=== PATIENT | male | born 1940 ===

== ENCOUNTER 2017-11-17 11:45 | Inpatient (IN) | payer MEDICARE, OTHER ==
[2017-10-22 11:09] VITALS: BMI 27.4
[2018-01-05] MEDS ORDERED: Bupivacaine Liposomal Inj 20 ml INFIL ONE (07:15)
--- NOTE | 2018-01-05 07:22 | CP.PCM.HP ---
History of Present Illness - History of Present Illness History of Present Illness: 77M complains of knee pain failed conservative mgmt and elected for right TKR. PMH includes CAD s/p PTCA, HTN, high cholesterol. Present on Admission - Present on Admission Any Indicators Present on Admission: No Review of Systems - Review of Systems All systems: reviewed and no additional remarkable complaints except - Musculoskeletal Musculoskeletal: As Per HPI Past Patient History - Past Medical History & Family History Past Medical History?: Yes Past Family History: Reviewed and not pertinent - Past Social History Smoking Status: Never Smoked - CARDIAC Hx Cardiac Disorders: Yes Hx Hypercholesterolemia: Yes Hx Hypertension: Yes - NEUROLOGICAL Hx Neurological Disorder: Yes Hx Dizziness: Yes (NO MEDICATIONS FOR DIZZINESS) Other/Comment: GENERALIZED TREMORS NO DX - HEENT Hx HEENT Problems: Yes (DECREASED IN HEARING-NO HEARING AIDS) Hx Cataracts: Yes (BILAT. NO SURGERY) - MUSCULOSKELETAL/RHEUMATOLOGICAL Hx Musculoskeletal Disorders: Yes Hx Arthritis: Yes (TAKE ADVIL PRN) - PSYCHIATRIC Hx Psychophysiologic Disorder: Yes Hx Anxiety: Yes - SURGICAL HISTORY Hx Surgeries: Yes Hx Angioplasty: Yes (X 8- 10 YEARS AGO) Hx Cardiac Catheterization: Yes Hx Orthopedic Surgery: Yes (right shoulder) - ANESTHESIA Hx Anesthesia: Yes Hx Anesthesia Reactions: No Hx Malignant Hyperthermia: No Has any member of the family had a problem w/ anesthesia?: No Meds Allergies/Adverse Reactions: Allergies Allergy/AdvReac Type Severity Reaction Status Date / Time No Known Allergies Allergy Verified 03/15/14 07:01 Physical Exam - Constitutional Appears: Well, No Acute Distress - Extremities Exam Additional comments: calves soft NT neg homans +DP/PT pulses sensation intact - Neurological Exam Neurological exam: Alert, Oriented x3 - Psychiatric Exam Psychiatric exam: Normal Affect, Normal Mood - Skin Skin Exam: Dry, Intact, Normal Color, Warm Results - Vital Signs Recent Vital Signs: Last Vital Signs Temp 97.6 F 01/05/18 06:37 Pulse 59 L 01/05/18 06:37 Resp 20 01/05/18 06:37 BP 139/76 01/05/18 06:37 Pulse Ox 97 01/05/18 06:37 Assessment & Plan (1) Primary osteoarthritis of right knee Assessment and Plan: for TKR Status: Acute (2) HTN (hypertension) Assessment and Plan: cont home meds Status: Chronic
[2018-01-05] MEDS ORDERED: Lactated Ringer's 1,000 ML IV ONE (07:50)
[2018-01-05] MEDS ORDERED: ceFAZolin 1 gm in NS 2 GM/200 ML BAG IVPB ONE (07:52)
[2018-01-05] MEDS ORDERED: Propofol 10 mg/ml Inj (20 ML) ONE (07:54)
[2018-01-05] MEDS ORDERED: Sodium Chloride 0.9% 60 ML IV ONE (08:03)
[2018-01-05] MEDS: Bacitracin 150,000 UNIT in Sodium Chloride 0.9% Irrig 3,000 ML IR SCH ×2 (08:38→09:07)
[2018-01-05] MEDS ORDERED: Rocuronium 10 mg/ml (5 ml) ONE (09:13)
[2018-01-05] MEDS ORDERED: Bupivacaine HCl 0.5% PF (30 ml) Inj ONE (09:35)
[2018-01-05] MEDS ORDERED: Thrombin Topical 20,000 Intl Units Spray Kit TOP ONE (10:04)
[2018-01-05] MEDS ORDERED: Neostigmine Methylsulfate 3mg/3ml Syringe IV ONE (10:28)
[2018-01-05] MEDS ORDERED: Oxycodone/Acetaminophen 5/325 mg Tab PO PRN (11:05)
[2018-01-05] MEDS: HYDROmorphone 0.5 mg/0.5 ml ISec IVP PRN ×3 (11:12→13:30)
--- NOTE | 2018-01-05 11:16 | PCM.SURG1 ---
Surgeon's Initial Post Op Note - Surgeon's Notes Surgeon: Reji Ross MD Negative Restorer: Justin Corona PA-C, MS-III Type of Anesthesia: General Endo Anesthesia Administered By: Dr. Morales Pre-Operative Diagnosis: Right knee DJD Operative Findings: tourniquet 79 min @ 300mmHg Post-Operative Diagnosis: same Operation Performed: right total knee replacement Specimen/Specimens Removed: bone Estimated Blood Loss: EBL {In ML}: 150 Blood Products Given: N/A Drains Used: Hemovac Post-Op Condition: Fair Date of Surgery/Procedure: 01/05/18 Time of Surgery/Procedure: 11:16
--- NOTE | 2018-01-05 12:25 | RAD ---
PROCEDURE: Right Knee Radiographs. HISTORY: s/p TKR, pt in PACU COMPARISON: Bilateral knees 02/11/2017 prior FINDINGS: BONES: PA seen to be status post right shoulder replacement with hardware in good apparent position in frontal and lateral views. Surgical drain is noted in position anteriorly with limited postoperative changes seen in local knee soft tissues. No subluxation or dislocation. Electronic device is seen at the medial thigh soft tissues. JOINTS: As above. JOINT EFFUSION: As above. OTHER FINDINGS: None. IMPRESSION: Status post right total knee replacement with postop changes identified as discussed above.
[2018-01-05] MEDS: ceFAZolin 2 GM in Sodium Chloride 0.9% 100 ML IVPB SCH (16:44)
[2018-01-05] MEDS: Sodium Chloride 0.9% 1,000 ML IV SCH (16:45)
[2018-01-05] MEDS ORDERED: Albuterol-Ipratrop 3 mg / 0.5 (3 ml) UD INH STA (18:14)
--- NOTE | 2018-01-05 20:36 | OP ---
PROCEDURE DATE: 01/05/2018 PREOPERATIVE DIAGNOSIS: Right knee osteoarthritis. POSTOPERATIVE DIAGNOSIS: Right knee osteoarthritis. PROCEDURE: Right total knee arthroplasty. SURGEON: Mars Ross MD TELEPHONE ANSWERING SERVICE OPERATOR: Asael Garcia PA-C. Ms. Garcia was scrubbed and present throughout the entire case and assisted in patient positioning, retraction throughout the case, as well as wound closure. A third year medical examiner also scrubbed in during the procedure. TYPE OF ANESTHESIA: General. COMPLICATIONS: None. ESTIMATED BLOOD LOSS: 150 mL. IMPLANT: A [employer]omet Vanguard Total Knee System. INDICATIONS FOR PROCEDURE: This is a 77-year-old gentleman who presented with longstanding right knee pain. Clinical examination was consistent with some mild varus deformity, significant medial and patellofemoral joint tenderness to palpation. Radiographic examination was consistent with degenerative joint disease of the right knee. After a period of failed nonsurgical management, recommendation was for right total knee arthroplasty. The risks, benefits, and alternatives of the procedure were discussed with the patient and informed consent was obtained. DESCRIPTION OF PROCEDURE: After surgical site was finally verified in the preoperative holding area, the patient was taken to the operating room and placed supine on the operating room table. After administration of general anesthesia, the patient received 2 gm of Ancef IV. A Leroy catheter was inserted. Tourniquet was placed about the right thigh. Care was taken to make sure all bony prominences and nerves were well padded and protected, and the right lower extremity was prepped and draped in usual sterile fashion. Right lower extremity was exsanguinated and the tourniquet was inflated. Approximately a 10 cm longitudinal incision was made. Soft tissues were dissected sharply down to the knee joint and medial parapatellar arthrotomy was performed. Medial and lateral menisci, ACL and PCL, as well as the anterior fat pad were resected. Once the knee joint was adequately exposed, a step drill was used to drill into the medullary canal of the distal femur. Intramedullary distal femoral guide was inserted and pinned into place. A distal femoral resection was performed. Next, a femoral component was sized and a 4-in-1 cut block was pinned. Anterior and posterior cuts were performed, the box cut was performed in the femur. Our attention was then directed to the tibia. Extramedullary tibial guide was placed and satisfied with our alignment, a tibial resection was performed. At this point, flexion and extension gaps were checked. The patient was noted to have full flexion and extension and stable with varus valgus stress and well balanced. Satisfied, the tibial plate was sized and being careful to maintain proper rotation, the medullary canal of the proximal tibia was reamed and punched with a cruciate punch. With a trial tibia, trial femur, and a trial bearing in place, the knee was taken through range of motion and was noted to have full extension and stable with varus and valgus stress throughout. Attention was directed to the patella. The thickness of the patella was measured and a patellar resection was performed. The patellar button was sized and the holes for our patella button were then drilled. Trial patella was then placed and the knee was taken through a range of motion. The patient was noted to have some mild lateral tilt and this was corrected by performing a lateral retinacular release. Satisfied, all the trial components were removed and the knee joint was pulse lavaged with antibiotic saline solution. The bony surfaces were dried and the actual tibial, femoral, and patellar components were cemented into place. Care was taken to remove all excess cement. The wound was then copiously irrigated and the actual bearing was then inserted into place. At this point, the tourniquet was deflated and any obvious bleeding was cauterized. The medium Hemovac drain was inserted and arthrotomy was closed using #1 Vicryl suture, subcutaneous tissue was closed using 0 Vicryl and 2-0 Vicryl suture, and the skin was closed using bruce. Negative pressure wound incisional dressing was placed and the patient was awakened from the procedure and taken to the recovery room in stable condition. Mars Ross MD
[2018-01-06] MEDS: ceFAZolin 2 GM in Sodium Chloride 0.9% 100 ML IVPB SCH (00:26)
[2018-01-06] MEDS: Morphine 4 MG/ML VIAL IVP PRN ×3 (03:17→17:28)
[2018-01-06 06:29] LABS: HEMOGLOBIN 12.3 g/dL (12.0-18.0); MEAN CELL VOLUME 95.1 fL (80.0-94.0); MEAN CORPUSCULAR HEMOGLOBIN 32.9 pg (27.0-31.0); MEAN CORPUSCULAR HGB CONC 34.6 g/dL (33.0-37.0); MEAN PLATELET VOLUME 8.3 fL (7.2-11.7); RBC 3.73 Mil/uL (4.40-5.90); RED CELL DISTRIBUTION WIDTH 13.5 % (11.5-14.5); WHITE BLOOD COUNT 7.9 K/uL (4.8-10.8)
[2018-01-06 06:50] LABS: BLOOD UREA NITROGEN 10 mg/dL (9-20); CALCIUM 7.9 mg/dl (8.6-10.4); GFR AFRICAN-AMERICAN > 60; GFR NON-AFRICAN AMERICAN > 60
[2018-01-06] MEDS: Sodium Chloride 0.9% 1,000 ML IV SCH ×3 (07:00→23:47)
--- NOTE | 2018-01-06 08:40 | RAD ---
HISTORY: with expiratory wheezing COMPARISON: Chest radiograph dated 10/22/2017 FINDINGS: LUNGS: No active pulmonary disease. PLEURA: No significant pleural effusion identified, no pneumothorax apparent. CARDIOVASCULAR: Normal. OSSEOUS STRUCTURES: No significant abnormalities. VISUALIZED UPPER ABDOMEN: Normal. OTHER FINDINGS: None. IMPRESSION: No active disease.
[2018-01-06] MEDS ORDERED: Ergocalciferol 50,000 Intl Units Cap PO SCH (09:30)
[2018-01-06] MEDS: Enoxaparin 40 mg Syringe SC SCH (11:04)
--- NOTE | 2018-01-06 11:20 | CP.PCM.PN ---
Subjective - Date & Time of Evaluation Date of Evaluation: 01/06/18 Time of Evaluation: 11:19 - Subjective Subjective: Pt awake, alert. Complaining of R knee pain. Pt states that his stomach was bloated yesterday but has passed gas and feels better. Afebrile R knee: dressing intact Hemovac placed back on suction NVI distally Hg 12.3 POD#1 PT, Lovenox D/c planning Objective - Vital Signs/Intake and Output Vital Signs (last 24 hours): Temp Pulse Resp BP Pulse Ox 99.5 F 69 20 147/80 97 01/06/18 08:30 01/06/18 08:30 01/06/18 08:30 01/06/18 08:30 01/06/18 08:30 Intake and Output: 01/06/18 01/06/18 06:59 18:59 Intake Total 860 Output Total 1650 700 Balance -790 -700 - Medications Medications: Current Medications Acetaminophen (Tylenol 325mg Tab) 650 mg PO Q8 [facility] Last Admin: 01/05/18 22:06 Dose: 650 mg Amlodipine Besylate (Norvasc) 5 mg PO DAILY [facility] Last Admin: 01/06/18 11:03 Dose: 5 mg Calcium Carbonate (Oscal) 500 mg PO DAILY [facility] Last Admin: 01/06/18 11:04 Dose: 500 mg Docusate Sodium (Colace) 100 mg PO BID [facility] Last Admin: 01/06/18 11:08 Dose: 100 mg Donepezil HCl (Aricept) 5 mg PO [facility] Enoxaparin Sodium (Lovenox) 40 mg SC DAILY [facility] Last Admin: 01/06/18 11:04 Dose: 40 mg Ergocalciferol (Drisdol 50,000 Intl Units Cap) 1 cap PO Q7D [facility] Last Admin: 01/06/18 11:13 Dose: 1 cap Hydrochlorothiazide (Microzide) 12.5 mg PO DAILY [facility] Last Admin: 01/06/18 11:04 Dose: 12.5 mg Sodium Chloride (Sodium Chloride 0.9%) 1,000 mls @ 80 mls/hr IV .[id number] [facility] Last Admin: 01/06/18 07:00 Dose: 80 mls/hr Losartan Potassium (Cozaar) 100 mg PO DAILY [facility] Last Admin: 01/06/18 11:09 Dose: 100 mg Metoprolol Tartrate (Lopressor) 50 mg PO BID [facility] Last Admin: 01/06/18 11:04 Dose: 50 mg Morphine Sulfate (Morphine) 2 mg IVP Q4 PRN PRN Reason: Pain, severe (8-10) Last Admin: 01/06/18 11:00 Dose: 2 mg Ondansetron HCl (Zofran Inj) 4 mg IVP Q6H PRN PRN Reason: Nausea/Vomiting Oxycodone/Acetaminophen (Percocet 5/325 Mg Tab) 1 tab PO Q4 PRN PRN Reason: Pain, moderate (4-7) Stop: 01/08/18 11:06 Last Admin: 01/05/18 18:30 Dose: 1 tab Pregabalin (Lyrica) 50 mg PO BID [facility] Last Admin: 01/06/18 11:14 Dose: 50 mg Primidone (Mysoline) 50 mg PO BID [facility] Last Admin: 01/06/18 11:00 Dose: 50 mg Trazodone HCl (Desyrel) 100 mg PO HS PRN PRN Reason: Insomnia - Labs Labs: 01/06/18 06:23 01/06/18 06:23
--- NOTE | 2018-01-06 19:07 | CP.PCM.CON ---
History of Present Illness - History of Present Illness History of Present Illness: dictated Past Patient History - Past Medical History & Family History Past Medical History?: Yes - Past Social History Smoking Status: Never Smoked - CARDIAC Hx Cardiac Disorders: Yes Hx Hypercholesterolemia: Yes Hx Hypertension: Yes - NEUROLOGICAL Hx Neurological Disorder: Yes Hx Dizziness: Yes (NO MEDICATIONS FOR DIZZINESS) Other/Comment: GENERALIZED TREMORS NO DX - HEENT Hx HEENT Problems: Yes (DECREASED IN HEARING-NO HEARING AIDS) Hx Cataracts: Yes (BILAT. NO SURGERY) - MUSCULOSKELETAL/RHEUMATOLOGICAL Hx Arthritis: Yes - PSYCHIATRIC Hx Substance Use: No - SURGICAL HISTORY Hx Surgeries: Yes Hx Angioplasty: Yes (X 8- 10 YEARS AGO) Hx Cardiac Catheterization: Yes Hx Orthopedic Surgery: Yes (right shoulder) Other/Comment: Rt. Knee Arthroplasty,Total Knee Replacement.01/05/18 - ANESTHESIA Hx Anesthesia: Yes Hx Anesthesia Reactions: No Hx Malignant Hyperthermia: No Has any member of the family had a problem w/ anesthesia?: No Meds Allergies/Adverse Reactions: Allergies Allergy/AdvReac Type Severity Reaction Status Date / Time No Known Allergies Allergy Verified 03/15/14 07:01 - Medications Medications: Current Medications Acetaminophen (Tylenol 325mg Tab) 650 mg PO Q8 [facility] Last Admin: 01/06/18 13:07 Dose: 650 mg Amlodipine Besylate (Norvasc) 5 mg PO DAILY [facility] Last Admin: 01/06/18 11:03 Dose: 5 mg Calcium Carbonate (Oscal) 500 mg PO DAILY [facility] Last Admin: 01/06/18 11:04 Dose: 500 mg Enoxaparin Sodium (Lovenox) 40 mg SC DAILY [facility] Last Admin: 01/06/18 11:04 Dose: 40 mg Ergocalciferol (Drisdol 50,000 Intl Units Cap) 1 cap PO Q7D [facility] Last Admin: 01/06/18 11:13 Dose: 1 cap Hydrochlorothiazide (Microzide) 12.5 mg PO DAILY [facility] Last Admin: 01/06/18 11:04 Dose: 12.5 mg Sodium Chloride (Sodium Chloride 0.9%) 1,000 mls @ 80 mls/hr IV .[id number] [facility] Last Admin: 01/06/18 13:05 Dose: Not Given Losartan Potassium (Cozaar) 100 mg PO DAILY [facility] Last Admin: 01/06/18 11:09 Dose: 100 mg Metoprolol Tartrate (Lopressor) 50 mg PO BID [facility] Last Admin: 01/06/18 17:29 Dose: 50 mg Morphine Sulfate (Morphine) 2 mg IVP Q4 PRN PRN Reason: Pain, severe (8-10) Last Admin: 01/06/18 17:28 Dose: 2 mg Ondansetron HCl (Zofran Inj) 4 mg IVP Q6H PRN PRN Reason: Nausea/Vomiting Oxycodone/Acetaminophen (Percocet 5/325 Mg Tab) 1 tab PO Q4 PRN PRN Reason: Pain, moderate (4-7) Stop: 01/08/18 11:06 Last Admin: 01/05/18 18:30 Dose: 1 tab Primidone (Mysoline) 50 mg PO BID [facility] Last Admin: 01/06/18 17:29 Dose: 50 mg Results - Vital Signs Recent Vital Signs: Last Vital Signs Temp 99.9 F H 01/06/18 15:55 Pulse 69 01/06/18 15:55 Resp 20 01/06/18 15:55 BP 130/71 01/06/18 15:55 Pulse Ox 94 L 01/06/18 15:55 - Labs Result Diagrams: 01/06/18 06:23 01/06/18 06:23 Labs: Laboratory Results - last 24 hr 01/06/18 01/06/18 01/06/18 06:23 06:23 06:23 WBC 7.9 RBC 3.73 L Hgb 12.3 D Hct 35.5 MCV 95.1 H MCH 32.9 H MCHC 34.6 RDW 13.5 Plt Count 146 MPV 8.3 Sodium 137 Potassium 4.3 Chloride 100 Carbon Dioxide 28 Anion Gap 13 BUN 10 Creatinine 1.1 Est GFR ( Amer) > 60 Est GFR (Non-Af Amer) > 60 Random Glucose 136 H Calcium 7.9 L 25-OH Vitamin D Total 20.4 L
[2018-01-07] MEDS: Sodium Chloride 0.9% 1,000 ML IV SCH (02:25)
[2018-01-07] MEDS: Morphine 4 MG/ML VIAL IVP PRN ×2 (05:27)
[2018-01-07 06:41] LABS: BASO # 0.1 K/uL (0.0-0.2); BASO % 0.5 % (0.0-2.0); EOS # 0.1 K/uL (0.0-0.7); EOS % 0.5 % (0.0-4.0); HEMOGLOBIN 10.9 g/dL (12.0-18.0); LYMPH # 1.7 K/uL (1.0-4.3); LYMPH % 15.1 % (20.0-40.0); MEAN CELL VOLUME 96.1 fL (80.0-94.0); MEAN CORPUSCULAR HEMOGLOBIN 32.5 pg (27.0-31.0); MEAN CORPUSCULAR HGB CONC 33.9 g/dL (33.0-37.0); MONO # 1.3 K/uL (0.0-0.8); MONO % 11.8 % (0.0-10.0); NEUT # 8.1 K/uL (1.8-7.0); NEUT % 72.1 % (50.0-75.0); RBC 3.34 Mil/uL (4.40-5.90); RED CELL DISTRIBUTION WIDTH 13.5 % (11.5-14.5); WHITE BLOOD COUNT 11.2 K/uL (4.8-10.8)
[2018-01-07 07:19] LABS: ALBUMIN 2.9 g/dL (3.5-5.0); ALT/SGPT 19 U/L (21-72); AST/SGOT 29 U/L (17-59); BLOOD UREA NITROGEN 13 mg/dL (9-20); CALCIUM 8.3 mg/dl (8.6-10.4); GFR AFRICAN-AMERICAN > 60; GFR NON-AFRICAN AMERICAN > 60
[2018-01-07] MEDS: Enoxaparin 40 mg Syringe SC SCH (10:05)
--- NOTE | 2018-01-07 11:37 | CP.PCM.PN ---
Subjective - Date & Time of Evaluation Date of Evaluation: 01/07/18 Time of Evaluation: 11:34 - Subjective Subjective: Patient states pain is better. Abd pain is better. Denies CP/SOB/dizziness. Objective - Vital Signs/Intake and Output Vital Signs (last 24 hours): Temp Pulse Resp BP Pulse Ox 99.5 F 69 20 148/79 97 01/07/18 08:58 01/07/18 08:58 01/07/18 08:58 01/07/18 08:58 01/07/18 08:58 Intake and Output: 01/07/18 01/07/18 06:59 18:59 Intake Total 1340 Output Total 830 Balance 510 - Medications Medications: Current Medications Acetaminophen (Tylenol 325mg Tab) 650 mg PO Q8 [facility] Last Admin: 01/07/18 05:28 Dose: 650 mg Amlodipine Besylate (Norvasc) 5 mg PO DAILY [facility] Last Admin: 01/07/18 10:04 Dose: 5 mg Calcium Carbonate (Oscal) 500 mg PO DAILY [facility] Last Admin: 01/07/18 10:04 Dose: 500 mg Docusate Sodium (Colace) 100 mg PO TID [facility] Last Admin: 01/07/18 10:05 Dose: 100 mg Enoxaparin Sodium (Lovenox) 40 mg SC DAILY [facility] Last Admin: 01/07/18 10:05 Dose: 40 mg Ergocalciferol (Drisdol 50,000 Intl Units Cap) 1 cap PO Q7D [facility] Last Admin: 01/06/18 11:13 Dose: 1 cap Hydrochlorothiazide (Microzide) 12.5 mg PO DAILY [facility] Last Admin: 01/07/18 10:04 Dose: 12.5 mg Sodium Chloride (Sodium Chloride 0.9%) 1,000 mls @ 80 mls/hr IV .[id number] [facility] Last Admin: 01/07/18 02:25 Dose: Not Given Losartan Potassium (Cozaar) 100 mg PO DAILY [facility] Last Admin: 01/07/18 10:05 Dose: 100 mg Metoprolol Tartrate (Lopressor) 50 mg PO BID [facility] Last Admin: 01/07/18 10:04 Dose: 50 mg Morphine Sulfate (Morphine) 2 mg IVP Q4 PRN PRN Reason: Pain, severe (8-10) Last Admin: 01/07/18 05:27 Dose: 2 mg Ondansetron HCl (Zofran Inj) 4 mg IVP Q6H PRN PRN Reason: Nausea/Vomiting Oxycodone/Acetaminophen (Percocet 5/325 Mg Tab) 1 tab PO Q4 PRN PRN Reason: Pain, moderate (4-7) Stop: 01/08/18 11:06 Last Admin: 01/05/18 18:30 Dose: 1 tab Primidone (Mysoline) 50 mg PO BID [facility] Last Admin: 01/07/18 10:04 Dose: 50 mg - Labs Labs: 01/07/18 06:30 01/07/18 06:30 - Extremities Exam Additional comments: dressing removed, hemovac pulled. Incision intact, dry, no erythema, minimal swellingl +ROM ankle/toes, sensation intact +DP/PT pulses calves soft NT neg homans Assessment and Plan (1) Primary osteoarthritis of right knee Assessment & Plan: POD#2 s/p right TKR d/c planning to TCU, patient lives alone, but has elevator labs in am, monitor WBC PT/OT VTE proh d/w Dr. Ross, agrees withshelby cobos Status: Acute (2) HTN (hypertension) Status: Chronic (3) Acute blood loss anemia Assessment & Plan: hemodynamically stable Status: Acute (4) Vitamin D deficiency Assessment & Plan: supp Status: Chronic
--- NOTE | 2018-01-07 13:32 | RAD ---
Abdomen two views History: Postop abdominal distention. Comparison: None available. Findings: Biapical pleural thickening with upper lobe granulomatous changes. Mild venous congestion. Enlarged ectatic aorta. Cardiomegaly. Degenerative changes in the spine and shoulders. Rounded ossific density projecting over the right proximal humerus. Multiple dilated and or distended loops of small bowel seen throughout the abdomen. Air seen within the colon. Degenerative changes in the spine and hips. Impression: Multiple dilated loops of small bowel seen throughout the abdomen and pelvis which may represent an ileus and/or partial bowel obstruction. Clinical correlation.
[2018-01-07] MEDS ORDERED: Albuterol-Ipratrop 3 mg / 0.5 (3 ml) UD INH STA (17:07)
--- NOTE | 2018-01-07 17:23 | RAD ---
HISTORY: Wheezing. COMPARISON: 01/05/2018. FINDINGS: LUNGS: No active pulmonary disease. PLEURA: No significant pleural effusion identified, no pneumothorax apparent. CARDIOVASCULAR: No radiographic findings to suggest acute or significant cardiovascular disease. OSSEOUS STRUCTURES: No significant abnormalities. VISUALIZED UPPER ABDOMEN: Normal. OTHER FINDINGS: None. IMPRESSION: No active disease. No significant interval change compared to the prior examination(s). Upper
[2018-01-07] MEDS: MethylPREDNISolone 40 mg Vial IVP SCH (19:08)
[2018-01-07] MEDS: Albuterol-Ipratrop 3 mg / 0.5 (3 ml) UD INH SCH (19:22)
--- NOTE | 2018-01-08 00:09 | PN ---
DATE: SUBJECTIVE: The patient was seen by me for the last two days. The patient underwent right knee replacement. Postoperatively, the patient is doing okay. Today nurse has called me saying that he was having increasing wheezing in the evening time. Also increasing cough and shortness of breath. Immediately, the patient was given DuoNeb. With that, he was feeling slightly better. X-ray was also done today. PHYSICAL EXAMINATION: VITAL SIGNS: Temperature is 99.3, pulse 69, blood pressure 115/64, saturation is 95% with nasal cannula, respirations 20. CHEST: Bilateral diffuse rhonchi and wheezing noted. Regular heart sound. ABDOMEN: Nontender abdomen. EXTREMITIES: No pedal edema. Right leg, the patient has a splint. LABORATORY DATA: Chest x-ray which was done is showing evidence of possibly of bronchopneumonic changes and right upper lung, possibly haziness noted. Needs further evaluation. ASSESSMENT AND RECOMMENDATION: A 77-year-old male with multiple medical history including coronary artery disease, hypertension, hypercholesterolemia, admitted to the hospital following the right knee total knee replacement. The patient postoperatively possibly having mild pneumonic changes. We will get a CAT scan. We will start the patient on empirical Rocephin, sputum culture. We will get the blood culture as needed. Get the CBC and CMP, and we will follow up the patient. Alphonso Soriano MD MTDD
[2018-01-08] MEDS: Albuterol-Ipratrop 3 mg / 0.5 (3 ml) UD INH SCH ×3 (02:02→13:26)
[2018-01-08] MEDS ORDERED: Tiotropium 18 mcg Cap For Inhalation INH SCH (08:00)
[2018-01-08 09:03] LABS: HEMOGLOBIN 11.4 g/dL (12.0-18.0); MEAN CELL VOLUME 94.5 fL (80.0-94.0); MEAN CORPUSCULAR HEMOGLOBIN 32.5 pg (27.0-31.0); MEAN CORPUSCULAR HGB CONC 34.4 g/dL (33.0-37.0); MEAN PLATELET VOLUME 9.2 fL (7.2-11.7); RBC 3.51 Mil/uL (4.40-5.90); RED CELL DISTRIBUTION WIDTH 13.4 % (11.5-14.5); WHITE BLOOD COUNT 11.1 K/uL (4.8-10.8)
[2018-01-08 09:16] LABS: BLOOD UREA NITROGEN 16 mg/dL (9-20); CALCIUM 8.6 mg/dl (8.6-10.4); GFR AFRICAN-AMERICAN > 60; GFR NON-AFRICAN AMERICAN > 60
[2018-01-08] MEDS: Enoxaparin 40 mg Syringe SC SCH (09:30)
[2018-01-08] MEDS: MethylPREDNISolone 40 mg Vial IVP SCH ×2 (09:30→18:00)
--- NOTE | 2018-01-08 09:41 | CT ---
PROCEDURE: CT Chest without contrast HISTORY: RT UL pneumonia COMPARISON: None. TECHNIQUE: Contiguous axial images were obtained through the chest without intravenous contrast enhancement. Sagittal and coronal reconstructions were performed. Radiation dose (DLP): 469.26 mGy-cm. This CT exam was performed using one or more of the following dose reduction techniques: Automated exposure control, adjustment of the mA and/or kV according to patient size, and/or use of iterative reconstruction technique. FINDINGS: LUNGS: No pulmonary infiltrate. Subsegmental right upper lobe atelectasis abutting the major fissure in the posterior segment. No pulmonary mass. Linear scar in the left apex. Minimal subsegmental atelectasis in the left lower lobe. Mild bilateral dependent pleural thickening common nonspecific. MEDIASTINUM: Mild aneurysmal dilatation of the ascending thoracic aorta to a diameter of 4.1 cm. Mild cardiomegaly. Coronary arterial calcification. Borderline dilatation of the main pulmonary artery to a diameter of 3.3 cm. Please correlate with any history of pulmonary arterial hypertension. No lymphadenopathy. PLEURA: No pleural fluid. No pneumothorax. BONES: No fracture. No destructive lesion. UPPER ABDOMEN: Multiple bilateral renal cysts. Largest is 5.4 cm in the upper pole of the right kidney. Only a portion of each kidney is included in this examination. OTHER FINDINGS: None. IMPRESSION: Subsegmental right upper lobe atelectasis. No acute infiltrate. No pleural effusion. Mild cardiomegaly. Aneurysmal dilatation of ascending thoracic aorta. Mild dilatation of the main pulmonary artery. Bilateral renal cortical cysts.
[2018-01-08] MEDS ORDERED: cefTRIAXone IV 1 gm in Dextros 50 ML IVPB SCH (10:00)
--- NOTE | 2018-01-08 10:18 | CP.PCM.PN ---
Subjective - Date & Time of Evaluation Date of Evaluation: 01/08/18 Time of Evaluation: 10:12 - Subjective Subjective: Patient states he has some abdominal pain, but not much. He has had BM. Denies nausea/vomiting, tolerating diet. Knee pain is improving. He agrees to TCU placement. Denies CP/SOB, says his breathing is improved today. [employer]visor at beside Objective - Vital Signs/Intake and Output Vital Signs (last 24 hours): Temp Pulse Resp BP Pulse Ox 98.2 F 72 18 136/73 98 01/08/18 07:00 01/08/18 07:00 01/08/18 07:00 01/08/18 07:00 01/08/18 07:00 Intake and Output: 01/08/18 01/08/18 06:59 18:59 Output Total 1300 Balance -1300 - Medications Medications: Current Medications Acetaminophen (Tylenol 325mg Tab) 650 mg PO Q8 [facility] Last Admin: 01/08/18 05:52 Dose: 650 mg Albuterol/Ipratropium (Duoneb 3 Mg/0.5 Mg (3 Ml) Ud) 3 ml INH RQ6 [facility] Last Admin: 01/08/18 07:33 Dose: 3 ml Amlodipine Besylate (Norvasc) 5 mg PO DAILY [facility] Last Admin: 01/08/18 09:31 Dose: 5 mg Azithromycin (Zithromax) 500 mg PO DAILY [facility] PRN Reason: Protocol Last Admin: 01/08/18 09:31 Dose: 500 mg Calcium Carbonate (Oscal) 500 mg PO DAILY [facility] Last Admin: 01/08/18 09:31 Dose: 500 mg Docusate Sodium (Colace) 100 mg PO TID AD Last Admin: 01/08/18 09:31 Dose: 100 mg Enoxaparin Sodium (Lovenox) 40 mg SC DAILY [facility] Last Admin: 01/08/18 09:30 Dose: 40 mg Ergocalciferol (Drisdol 50,000 Intl Units Cap) 1 cap PO Q7D [facility] Last Admin: 01/06/18 11:13 Dose: 1 cap Ceftriaxone Sodium (Rocephin Iv 1 Gm Duplex) 50 mls @ 100 mls/hr IVPB DAILY [facility] PRN Reason: Protocol Last Admin: 01/08/18 09:28 Dose: 100 mls/hr Losartan Potassium (Cozaar) 100 mg PO DAILY [facility] Last Admin: 01/08/18 09:31 Dose: 100 mg Methylprednisolone (Solu-Medrol) 20 mg IVP BID [facility] Last Admin: 01/08/18 09:30 Dose: 20 mg Metoprolol Tartrate (Lopressor) 50 mg PO BID [facility] Last Admin: 01/08/18 09:31 Dose: 50 mg Morphine Sulfate (Morphine) 2 mg IVP Q4 PRN PRN Reason: Pain, severe (8-10) Last Admin: 01/07/18 05:27 Dose: 2 mg Ondansetron HCl (Zofran Inj) 4 mg IVP Q6H PRN PRN Reason: Nausea/Vomiting Oxycodone/Acetaminophen (Percocet 5/325 Mg Tab) 1 tab PO Q4 PRN PRN Reason: Pain, moderate (4-7) Stop: 01/08/18 11:06 Last Admin: 01/05/18 18:30 Dose: 1 tab Primidone (Mysoline) 50 mg PO BID [facility] Last Admin: 01/08/18 09:31 Dose: 50 mg Tiotropium [place] (Spiriva) 18 mcg INH RQ24 [facility] Last Admin: 01/08/18 07:33 Dose: 18 mcg - Labs Labs: 01/08/18 08:51 01/08/18 08:51 - Respiratory Exam Respiratory Exam: NORMAL BREATHING PATTERN - GI/Abdominal Exam GI & Abdominal Exam: Soft (non tender) - Extremities Exam Additional comments: RLE: eliza intact, sensation intact, +ROM ankle/toes, calves soft NT negh omans, minimal swellingn to knee, no drainage, no erythema Assessment and Plan (1) Primary osteoarthritis of right knee Assessment & Plan: POD#3 s/p right TKR plan transfer to TCU today will continue ELIZA until Thursday, then remove and apply dry sterile dressing knee immobilizer at night encourage IS Dr. Soriano f/u appreciated, CT scan completed, will await input d/w Dr. Ross, agrees [facility] above Status: Acute (2) HTN (hypertension) Status: Chronic (3) Acute blood loss anemia Assessment & Plan: stable Status: Acute (4) Vitamin D deficiency Status: Chronic
--- NOTE | 2018-01-08 12:32 | CP.PCM.DIS ---
Provider - Provider Date of Admission: 01/05/18 06:05 Attending physician: Mars Ross MD Time Spent in preparation of Discharge (in minutes): 5 Diagnosis - Discharge Diagnosis (1) Primary osteoarthritis of right knee Status: Acute (2) HTN (hypertension) Status: Chronic (3) Acute blood loss anemia Status: Acute (4) Vitamin D deficiency Status: Chronic Hospital Course - Lab Results Lab Results: Most Recent Lab Values WBC 11.1 K/uL (4.8-10.8) H 01/08/18 08:51 RBC 3.51 Mil/uL (4.40-5.90) L 01/08/18 08:51 Hgb 11.4 g/dL (12.0-18.0) L 01/08/18 08:51 Hct 33.1 % (35.0-51.0) L 01/08/18 08:51 MCV 94.5 fL (80.0-94.0) H 01/08/18 08:51 MCH 32.5 pg (27.0-31.0) H 01/08/18 08:51 MCHC 34.4 g/dL (33.0-37.0) 01/08/18 08:51 RDW 13.4 % (11.5-14.5) 01/08/18 08:51 Plt Count 140 K/uL (130-400) 01/08/18 08:51 MPV 9.2 fL (7.2-11.7) 01/08/18 08:51 Neut % (Auto) 72.1 % (50.0-75.0) 01/07/18 06:30 Lymph % (Auto) 15.1 % (20.0-40.0) L 01/07/18 06:30 [place] % (Auto) 11.8 % (0.0-10.0) H 01/07/18 06:30 Eos % (Auto) 0.5 % (0.0-4.0) 01/07/18 06:30 Baso % (Auto) 0.5 % (0.0-2.0) 01/07/18 06:30 Neut # (Auto) 8.1 K/uL (1.8-7.0) H 01/07/18 06:30 Lymph # (Auto) 1.7 K/uL (1.0-4.3) 01/07/18 06:30 [place] # (Auto) 1.3 K/uL (0.0-0.8) H 01/07/18 06:30 Eos # (Auto) 0.1 K/uL (0.0-0.7) 01/07/18 06:30 Baso # (Auto) 0.1 K/uL (0.0-0.2) 01/07/18 06:30 Sodium 137 mmol/L (132-148) 01/08/18 08:51 Potassium 4.7 mmol/L (3.6-5.2) 01/08/18 08:51 Chloride 99 mmol/L (98-107) 01/08/18 08:51 Carbon Dioxide 27 mmol/L (22-30) 01/08/18 08:51 Anion Gap 16 (10-20) 01/08/18 08:51 BUN 16 mg/dL (9-20) 01/08/18 08:51 Creatinine 0.9 mg/dL (0.8-1.5) 01/08/18 08:51 Est GFR ( Amer) > 60 01/08/18 08:51 Est GFR (Non-Af Amer) > 60 01/08/18 08:51 Random Glucose 139 mg/dL (75-110) H 01/08/18 08:51 Calcium 8.6 mg/dl (8.6-10.4) 01/08/18 08:51 Total Bilirubin 1.2 mg/dL (0.2-1.3) 01/07/18 06:30 AST 29 U/L (17-59) 01/07/18 06:30 ALT 19 U/L (21-72) L 01/07/18 06:30 Alkaline Phosphatase 57 U/L (38-126) 01/07/18 06:30 Total Protein 6.0 g/dL (6.3-8.3) L 01/07/18 06:30 Albumin 2.9 g/dL (3.5-5.0) L 01/07/18 06:30 Globulin 3.1 gm/dL (2.2-3.9) 01/07/18 06:30 Albumin/Globulin Ratio 1.0 (1.0-2.1) 01/07/18 06:30 25-OH Vitamin D Total 20.4 NG/ML (30.0-100.0) L 01/06/18 06:23 Blood Type O POSITIVE 01/05/18 07:26 Antibody Screen Negative 01/05/18 07:26 - Hospital Course Hospital Course: 77M with PMH: HTN, CAD, hypercholesterolemia with right knee osteoarthritis failed conservative management and elected for TKR. Postoperative imaging demonstrated acceptable position of prosthesis. Medical consultation was requested for post operative medical management. HTN controlled throughout admission. Patients post operative course was complicated by acute blood loss anemia, hemodynamically stable and well tolerated, no treatment needed. Patient tolerated PT/OT well. Patient received VTE prophylaxis in the form of lovenox 40mg SQ q24h and venodynes. Patient was instructed to maintain knee immobilizer at night, to remove during the day, and instructed patient to continue aggressive ROM of the knee. Patient was discharged with ELIZA wound vac device, and given instructions for removal of wound vac and application of dry sterile dressing on POD #6. PT was discharged to [facility], and continued on home medications as well as the lovenox. Patient was WBAT LLE, ambulating with walker, and given instructions for daily dressing changes and to f/u Dr. Ross within 2 weeks. e Discharge Plan - Follow Up Plan Condition: GOOD Disposition: REHAB FACILITY/REHAB UNIT Referrals: Mars Ross MD [Staff Provider] - 2 Weeks Cedrick Harris [Family Provider] - 4 Weeks
[2018-01-08 16:57] VITALS: RESP 20; TEMP 98.7; O2SAT 96
[2018-01-08 18:05] VITALS: BP 124/64; PULSE 73
== END 2018-01-08 18:24 | DRG 470 ==
LOC: C.9S 01-05 06:05 → C.6T 01-05 23:33
PROVIDERS: ADMIT Orthopaedic Surgery; ATTEND Orthopaedic Surgery
PROC: 0SRC0J9 Replacement of Right Knee Joint with Synthetic Substitute, Cemented, Open Approach (ICD-10-PCS; principal; 2018-01-05 07:30)
DX: M17.11 Unilateral primary osteoarthritis, right knee (principal); D62 Acute posthemorrhagic anemia; E55.9 Vitamin D deficiency, unspecified; I10 Essential (primary) hypertension; I25.10 Atherosclerotic heart disease of native coronary artery without angina pectoris; E78.00 Pure hypercholesterolemia, unspecified; Z98.61 Coronary angioplasty status